=== PATIENT | female | born 1975 | race Caucasian/White ===

== ENCOUNTER → 2016-08-08 | Outpatient (CLI) | payer OTHER ==
--- NOTE | 2016-08-08 10:49 | MAM ---
History: Well woman exam. Date of exam: 08/08/2016 Services provided: Bilateral full field digital screening mammography. CAD, the images were reviewed with R2 computer aided detection. FINDINGS: Glandular tissue is scattered nodular contour with increased mammographic density. Comparison with 2015 exam. Increasing mammographic asymmetry in the retroareolar left breast at approximately 9:00. Right breast parenchyma is stable and unchanged. There are no clustered microcalcifications or architectural distortion noted. IMPRESSION: Incomplete study Recommendation: Additional views left breast with spot compression views in the true lateral and craniocaudal projections and a true lateral film. Directed ultrasound if indicated clinically. BIRAD CATEGORY: 0 INCOMPLETE Electronically signed by: Hue Flores MD 08/08/2016 9:55 AM CDT
== END ==
LOC: MAMMO 08:29
PROVIDERS: ATTEND Family Medicine
DX: Z12.31 Encounter for screening mammogram for malignant neoplasm of breast (principal)

== ENCOUNTER → 2016-08-19 | Outpatient (CLI) | payer OTHER ==
--- NOTE | 2016-08-19 13:45 | MAM ---
EXAM DESCRIPTION: Diagnostic Mammo,Left CLINICAL HISTORY: 41 years, Female, Screening unilateral mammogram of the left breast showed asymmetric parenchymal density retroareolar portion left breast approximately 9:00 COMPARISON: Direct comparison with August 19, 2016 study TECHNIQUE: Spot compression CC and MLO digital mammograms and true lateral digital mammogram left breast with computer aided detection. FINDINGS: There are scattered fibroglandular densities. There is no dominant mass nor any suspicious microcalcifications. The area of nodular asymmetric parenchymal density has resolved on the additional mammographic views and represented overlapping parenchymal density. IMPRESSION: BI-RADS 1: NORMAL/NEGATIVE FOLLOW-UP: Routine mammography screening Electronically signed by: Del Elder MD 08/19/2016 1:45 PM CDT
== END | disposition home or self-care (01) ==
LOC: MAMMO 09:02
PROVIDERS: ATTEND Family Medicine
DX: R92.8 Other abnormal and inconclusive findings on diagnostic imaging of breast (principal)
CPT/HCPCS: 77065; G0206

== ENCOUNTER → 2016-09-20 | Outpatient (CLI) | payer OTHER | END | disposition home or self-care (01) | LOC: GMAM 13:51 | PROVIDERS: ATTEND Family Medicine | DX: L71.9 Rosacea, unspecified (principal); E34.9 Endocrine disorder, unspecified ==

== ENCOUNTER → 2017-07-09 | Outpatient (CLI) | payer OTHER | END | disposition home or self-care (01) | LOC: GMATM 17:08 | PROVIDERS: ATTEND Nurse Practitioner Family | DX: N39.0 Urinary tract infection, site not specified (principal) ==

== ENCOUNTER → 2017-08-18 | Outpatient (CLI) | payer OTHER ==
--- NOTE | 2017-08-19 09:12 | MAM ---
EXAM DESCRIPTION: 3D Screening BILATERAL : Digital Mammography. CLINICAL HISTORY: 42 years Female ANNUAL SCREENING no complaints. Mother with breast cancer. Premenopausal. No HRT. COMPARISON: 2-D digital screening bilateral study 08/08/2016.. Reports from prior examinations also reviewed. TECHNIQUE: Bilateral CC and MLO projection full-field images, 3-D tomosynthesis digital mammographic technique. Also bilateral synthesized CC/ MLO full-field images. CAD not utilized. FINDINGS: The breast parenchymal density pattern is: Scattered areas of fibroglandular density. No skin thickening or nipple retraction left breast axillary lymph nodes. Focal asymmetry versus mass density at the 300 clock position of the posterior third of the left breast approximately 10 cm from the nipple. More masslike appearance than on the prior study. No definite calcifications. No focal, stellate mass or density, focal asymmetry , and no suspicious microcalcifications right breast. IMPRESSION: BI-RADS CATEGORY: 0 - INCOMPLETE- Need additional imaging evaluation. FOLLOW-UP: Recall for additional imaging: Bilateral diagnostic 3-D tomosynthesis LM full-field images with 2-D magnification of the region of interest in the posterior third of the left breast in the CC projection. Targeted left breast ultrasound if indicated by diagnostic images.. Written communication concerning the IMPRESSION and Follow-up, will be mailed to the patient and referring health care provider. Electronically signed by: Elías Martins MD 08/19/2017 9:11 AM CDT
== END ==
LOC: MAMMO 13:39
PROVIDERS: ATTEND Family Medicine
DX: Z12.31 Encounter for screening mammogram for malignant neoplasm of breast (principal)

== ENCOUNTER → 2017-08-25 | Outpatient (CLI) | payer OTHER ==
--- NOTE | 2017-08-25 14:00 | US ---
EXAM DESCRIPTION: Breast,Left: Ultrasound CLINICAL HISTORY: 42 yearsFemaleABNORMAL MAMMO COMPARISON: Digital diagnostic 3-D tomosynthesis bilateral breast on this visit. TECHNIQUE: Transcutaneous scanning of the left breast utilizing two-dimensional and Doppler modes. Scanning performed by the excellence leader and Dr. Martins. FINDINGS: Scanning at the 300 clock position of the left breast 9 cm from the nipple to the nipple. Mostly fatty echotexture. Scattered heterogeneous fibroglandular tissues. No distinct solid mass or cyst. No large calcification or parenchymal edema. Normal Doppler vascularity. No overlying skin changes. IMPRESSION: 1. Bi-Rads Category 2: Benign. 2. Please refer to bilateral diagnostic 3-D tomosynthesis mammography and report on this visit. The FINDINGS and the FOLLOW-UP plan were reviewed in person with the patient after the examination. Written communication explaining the IMPRESSION and FOLLOW-UP will be mailed to the patient and referring care provider. Electronically signed by: Elías Martins MD 08/25/2017 1:58 PM CDT
--- NOTE | 2017-08-25 14:03 | MAM ---
EXAM DESCRIPTION: 3D Diagnostic, Bilateral: Digital Mammography CLINICAL HISTORY: 42 yearsFemaleABNORMAL SCREENING MAMMOGRAM. Focal asymmetry versus mass density lateral mid left breast.. COMPARISON: 3-D screening bilateral mammography 08/18/2017.. Reports from prior examinations also reviewed. TECHNIQUE: Bilateral LM projection full-field images, 3-D tomosynthesis digital mammographic technique. Also bilateral synthesized LM full-field images. 2-D digital spot magnification images of the mid lateral left breast at the region of interest. CAD for 2-D imaging only. FINDINGS: The breast parenchymal density pattern is: Scattered areas of fibroglandular density. No skin thickening or nipple retraction magnification views show no definite mass or abnormal calcifications. Intramammary lymph nodes. Minimal focal asymmetry on the left breast tomosynthesis images. No focal, stellate mass or density, focal asymmetry , and no suspicious microcalcifications right breast. ULTRASOUND: Scanning at the 300 clock position of the left breast 9 cm from the nipple to the nipple. Mostly fatty echotexture. Scattered heterogeneous fibroglandular tissues. No distinct solid mass or cyst. No large calcification or parenchymal edema. Normal Doppler vascularity. No overlying skin changes. IMPRESSION: BI-RADS CATEGORY: 2 - BENIGN FINDINGS. FOLLOW UP: Return to routine digital bilateral screening, one year interval from August 2017. The FINDINGS and the FOLLOW-UP plan were reviewed in person with the patient after the examination. Written communication explaining the IMPRESSION and FOLLOW-UP will be mailed to the patient and referring care provider. According to the [employer], yearly mammograms are recommended starting at age 40 and continuing as long as a woman is in good health. Any breast change noted on a breast self-exam should be reported promptly to the patient's healthcare provider. Breast MRI is recommended for women with an approximately 20-25% or greater lifetime risk of breast cancer, including women with a strong family history of breast or ovarian cancer and women who have been treated for Hodgkin's disease. A negative mammographic report should not delay tissue diagnosis in patients with significant clinical history or physical findings. Extremely dense breast tissue limits the sensitivity of digital mammography. Electronically signed by: Elías Martins MD 08/25/2017 2:01 PM CDT
== END ==
LOC: MAMMO 12:38
PROVIDERS: ATTEND Family Medicine
DX: R92.8 Other abnormal and inconclusive findings on diagnostic imaging of breast (principal)
CPT/HCPCS: 76641; 77066; G0279

== ENCOUNTER → 2017-09-08 | Outpatient (CLI) | payer OTHER | LOC: GMAM 12:08 | PROVIDERS: ATTEND Family Medicine | DX: E03.9 Hypothyroidism, unspecified (principal); E53.8 Deficiency of other specified B group vitamins ==

== ENCOUNTER → 2018-06-30 | Outpatient (CLI) | payer OTHER | LOC: GMAM 11:34 | PROVIDERS: ATTEND Family Medicine | DX: E53.8 Deficiency of other specified B group vitamins (principal); E03.9 Hypothyroidism, unspecified ==

== ENCOUNTER → 2019-03-22 | Outpatient (CLI) | payer OTHER | LOC: GMAM 10:59 | PROVIDERS: ATTEND Family Medicine | DX: E34.9 Endocrine disorder, unspecified (principal) ==

== ENCOUNTER → 2019-09-03 | Outpatient (CLI) | payer OTHER | LOC: GMAM 12:13 | PROVIDERS: ATTEND Family Medicine | DX: E03.9 Hypothyroidism, unspecified (principal); E78.1 Pure hyperglyceridemia; I10 Essential (primary) hypertension ==

== ENCOUNTER → 2020-05-19 | Outpatient (CLI) | payer OTHER | LOC: GMAM 12:07 | PROVIDERS: ATTEND Family Medicine | DX: E03.9 Hypothyroidism, unspecified (principal); Z20.828 Contact with and (suspected) exposure to other viral communicable diseases ==

== ENCOUNTER → 2020-06-01 | Outpatient (CLI) | payer OTHER ==
--- NOTE | 2020-06-03 12:58 | US ---
EXAM: Soft Tissue,Head/Neck INDICATION: 45 years Female, NONTOXIC SINGLE THYROID NODULE COMPARISON: None available TECHNIQUE: Real time sonographic examination was performed by a documentation analyst and multiple longitudinal and transverse ultrasound images through the thyroid gland were acquired. Doppler was also performed. FINDINGS: The right thyroid lobe measures 4.6 x 1.7 x 1.8 cm. The left thyroid lobe measures 4.3 x 1.7 x 1.9 cm. The isthmus measures 0.4 cm. The thyroid gland is normal in size and background parenchymal echogenicity. TI-RADS Nodule: 1 Location: Right mid Size: 0.9 x 0.8 x 0.8 cm Composition: Spongiform - 0 Echogenicity: NA Shape: NA Margin: NA Echogenic foci: NA TI-RADS Total Points: 0 (TR-1) TR- TR-1: BENIGN. No follow up. TI-RADS Nodule: 2 Location: Left mid Size: 0.4 x 0.3 x 0.5 cm Composition: Spongiform - 0 Echogenicity: NA Shape: NA Margin: NA Echogenic foci: NA TI-RADS Total Points: 0 (TR-1) TR- TR-1: BENIGN. No follow up. No cervical lymphadenopathy is identified. IMPRESSION: 2 subcentimeter spongiform benign thyroid nodules are identified. No further dedicated imaging follow-up is recommended per TI RADS criteria. Electronically signed by: Noris Casiano MD 06/03/2020 12:56 PM [employer]
== END ==
LOC: US 15:00
PROVIDERS: ATTEND Family Medicine
DX: E04.1 Nontoxic single thyroid nodule (principal)